=== PATIENT | female | born 1975 | race Caucasian/White ===

== ENCOUNTER 2022-05-03 05:13 | Emergency (ER) | payer MEDICAID ==
[~2022-05-03] VITALS: Ht 167.6 cm; Wt 99.3 kg
[2022-05-03] MEDS ORDERED: KETOROLAC TROMETHAMINE 30 MG/ML VIAL IM STA (05:53)
[2022-05-03] MEDS ORDERED: KETOROLAC TROMETHAMINE 30 MG/ML VIAL ONE (06:28)
[2022-05-03 06:40] VITALS: BP 150/70
== END 2022-05-03 06:40 | disposition home or self-care (01) ==
LOC: FSED 05:54
DX: M25.531 Pain in right wrist (principal); R20.2 Paresthesia of skin; I10 Essential (primary) hypertension; F43.10 Post-traumatic stress disorder, unspecified; F31.9 Bipolar disorder, unspecified; F17.210 Nicotine dependence, cigarettes, uncomplicated
CPT/HCPCS: 73100; 73120; 96372; 99283; J1885